=== PATIENT | male | born 1950 | race Caucasian/White ===

== ENCOUNTER → 2020-09-11 | Outpatient (CLI) | payer MEDICARE ==
[~2020-09-11] MED LIST: ALLO100 PO; ALLOPURINOL; AMLO5 PO; AMOCLA875 PO; ASPI81CH PO; CYCL10 PO; DOXA1 PO; ESCI20 PO; GABA300 PO; GABAPENTIN; GLIP5 PO; HYDACE5 PO; HYDMOR2 PO; IBUP800 PO; LEXAPRO; LISI20 PO; MECL12.5 PO; METF500 PO; Naprosyn500 MG PO; OXYACE5T PO; OXYC15ER PO; OXYC5 PO; PENVK500 PO; PROC10 PO; PROM25 PO; Percocet 5-3251 EACH PO; RXOXYACE PO; RXTRAM50 PO; TRAM50 PO; [UNRECOGNIZED DRUG - REMARK]; [UNRECOGNIZED DRUG - REMARK]
[2020-09-11 20:07] LABS: Prostate Specific Antigen 0.112 ng/mL (0.000-4.000)
== END | disposition home or self-care (01) ==
LOC: LAB SHORT 17:52 → LAB 17:52
PROVIDERS: Nurse Practitioner
DX: Z12.5 Encounter for screening for malignant neoplasm of prostate (principal); Z11.59 Encounter for screening for other viral diseases; E11.65 Type 2 diabetes mellitus with hyperglycemia
CPT/HCPCS: 83036; 86803; G0103

== ENCOUNTER 2021-09-19 17:15 | Emergency (ER) | payer MEDICARE ==
[~2021-09-19] VITALS: Ht 165.1 cm; Wt 119.8 kg
[2021-09-19 17:47] LABS: BASOPHILS ABSOLUTE AUTO 0.04 K/mm3 (0.00-0.23); BASOPHILS PERCENT AUTO 0 % (0-2); EOSINOPHILS ABSOLUTE AUTO 0.01 K/mm3 (0.00-0.68); EOSINOPHILS PERCENT AUTO 0 % (0-6); Hematocrit 48.8 % (37.0-53.0); Hemoglobin 16.3 g/dL (13.5-17.5); IMMATURE GRAN ABSOLUTE AUTO 0.05 K/mm3 (0.00-0.10); IMMATURE GRAN PERCENT AUTO 0 % (0-1); LYMPHOCYTES ABSOLUTE AUTO 2.04 K/mm3 (0.84-5.20); LYMPHOCYTES PERCENT AUTO 16 % (21-46); MONOCYTES ABSOLUTE AUTO 0.74 K/mm3 (0.16-1.47); MONOCYTES PERCENT AUTO 6 % (4-13); Mean Corpuscular HGB 29.1 pg (26.0-34.0); Mean Corpuscular HGB Conc 33.4 g/dL (31.5-36.5); Mean Corpuscular Volume 87 fL (80-100); Mean Platelet Volume 10.1 fL (9.1-12.4); NEUTROPHILS ABSOLUTE AUTO 9.96 K/mm3 (1.96-9.15); NEUTROPHILS PERCENT AUTO 78 % (41-73); Platelet Count 340 K/mm3 (150-400); RDW Coefficient Variation 14.2 % (11.7-14.2); RDW Standard Deviation 46.3 fL (35.1-46.3); White Blood Cell Count 12.84 K/mm3 (4.00-11.30)
[2021-09-19 18:07] LABS: Albumin, Blood 3.2 g/dL (3.4-5.0); Albumin/Globulin Ratio 0.6 (0.8-1.8); Bilirubin, Total 0.3 mg/dL (0.1-1.0); Bun/Creatinine Ratio 10.6 (12.0-20.0); Creatinine, Blood 1.42 mg/dL (0.60-1.20); Globulin, Blood 5.4 g/dL (2.2-4.0); Potassium, Blood 4.3 mmol/L (3.5-5.5); Total Protein, Blood 8.6 g/dL (6.4-8.2); Troponin I 0.032 ng/mL (0.000-0.040)
[2021-09-19] MEDS ORDERED: GUAI600T33 PO (21:31)
== END 2021-09-19 21:43 | disposition home or self-care (01) ==
LOC: ER 17:15
PROVIDERS: Physician Assistant
DX: J06.9 Acute upper respiratory infection, unspecified (principal); E87.1 Hypo-osmolality and hyponatremia; E86.9 Volume depletion, unspecified; R00.0 Tachycardia, unspecified; E11.40 Type 2 diabetes mellitus with diabetic neuropathy, unspecified; Z79.84 Long term (current) use of oral hypoglycemic drugs; Z79.899 Other long term (current) drug therapy
CPT/HCPCS: 36415; 71045; 80053; 84484; 85025; 93005; 93010; 99284-25

== ENCOUNTER 2021-10-31 19:06 | Emergency (ER) | payer MEDICARE ==
[~2021-10-31] VITALS: Ht 165.1 cm; Wt 117.9 kg
[~2021-10-31 19:06] MED LIST changes: +GUAI600T33 PO
[2021-10-31 19:36] LABS: BASOPHILS ABSOLUTE AUTO 0.06 K/mm3 (0.00-0.23); BASOPHILS PERCENT AUTO 0 % (0-2); EOSINOPHILS PERCENT AUTO 0 % (0-6); Hematocrit 47.6 % (37.0-53.0); IMMATURE GRAN ABSOLUTE AUTO 0.17 K/mm3 (0.00-0.10); IMMATURE GRAN PERCENT AUTO 1 % (0-1); LYMPHOCYTES ABSOLUTE AUTO 1.08 K/mm3 (0.84-5.20); LYMPHOCYTES PERCENT AUTO 5 % (21-46); MONOCYTES ABSOLUTE AUTO 0.61 K/mm3 (0.16-1.47); MONOCYTES PERCENT AUTO 3 % (4-13); Mean Corpuscular HGB 29.1 pg (26.0-34.0); Mean Corpuscular HGB Conc 33.6 g/dL (31.5-36.5); Mean Corpuscular Volume 87 fL (80-100); Mean Platelet Volume 10.2 fL (9.1-12.4); NEUTROPHILS ABSOLUTE AUTO 20.73 K/mm3 (1.96-9.15); NEUTROPHILS PERCENT AUTO 91 % (41-73); Platelet Count 324 K/mm3 (150-400); RDW Coefficient Variation 14.6 % (11.7-14.2); RDW Standard Deviation 46.2 fL (35.1-46.3); White Blood Cell Count 22.65 K/mm3 (4.00-11.30)
[2021-10-31 20:01] LABS: Alanine Aminotransfer (ALT/SGP 30 U/L (12-78); Albumin, Blood 3.8 g/dL (3.4-5.0); Albumin/Globulin Ratio 0.7 (0.8-1.8); Alk Phos 82 U/L (50-136); Anion Gap 11 mmol/L (6-16); Aspartate Aminotrans (AST/SGOT 24 U/L (12-37); Bilirubin, Total 0.6 mg/dL (0.1-1.0); Blood Urea Nitrogen 18 mg/dL (8-24); Bun/Creatinine Ratio 15.1 (12.0-20.0); CO2, Blood 23 mmol/L (21-32); Calcium, Blood 9.6 mg/dL (8.5-10.1); Chloride, Blood 96 mmol/L (98-108); Creatinine, Blood 1.19 mg/dL (0.60-1.20); Globulin, Blood 5.2 g/dL (2.2-4.0); Glomerular Filtration Rate >60 (60-); Glucose, Blood 336 mg/dL (70-99); Potassium, Blood 4.1 mmol/L (3.5-5.5); Sodium, Blood 130 mmol/L (136-145)
[2021-10-31 21:10] LABS: Influenza A, PCR NEGATIVE (NEGATIVE); Influenza B, PCR NEGATIVE (NEGATIVE); Resp Syncytial Virus, PCR NEGATIVE (NEGATIVE)
[2021-10-31 21:42] LABS: SARS-Cov-2 (COVID-19) PCR, MMC POSITIVE (NEGATIVE)
== END 2021-11-01 | disposition home or self-care (01) ==
LOC: ER 19:06
PROVIDERS: Physician Assistant; Student in an Organized Health Care Education/Training Program
DX: U07.1 COVID-19 (principal); A41.9 Sepsis, unspecified organism; D72.829 Elevated white blood cell count, unspecified; E86.0 Dehydration; E87.1 Hypo-osmolality and hyponatremia; Z79.899 Other long term (current) drug therapy; Z79.84 Long term (current) use of oral hypoglycemic drugs
CPT/HCPCS: 0241U; 36415; 71046; 74177; 80053; 82248; 83605; 83880; 84145; 84484; 85025; 93005; 93010; 96374; 96375; 99285-25; A9270; J1885; J2405; J2765; J7030; Q9967